=== PATIENT | female | born 1980 | race Two or more races ===

== ENCOUNTER 2016-11-26 21:06 | Emergency (ER) | payer OTHER ==
[~2016-11-26] VITALS: Ht 165.1 cm; Wt 139.7 kg
--- NOTE | ~2016-11-26 | US98 ---
[facility]. [facility] A Service of [facility] RADIOLOGY TEXT RESULTS PATIENT: JOSS OSORIO LOCATION: [facility] : 84 UNIT #: [id number] AGE: [address]: Yasmine Mcdaniel MD SEX: F ORDER DR: [id number] [address] [address] [id number] E MR#: [id number] Acc #: [id number] NAME: JOSS OSORIO : 1980 SEX: F STUDY DATE/TIME: 11/26/2016 22:01 UNIT: SED ROOM: STUDY DESCRIPTION: US Pelvic Non-OB Complete Attending Physician: Yasmine Mcdaniel M.D. Ordering Physician: Yasmine Mcdaniel M.D. Primary Care Physician: No Primary Care Physician MEDICAL IMAGING REPORT This report is preliminary unless electronic signature is present. EXAM Ultrasound pelvis, 11/26/2016. HISTORY 36-year-old female in the ED complaining of 1-month history of left lower quadrant pain. Past history of right oophorectomy surgery several years ago. TECHNIQUE Ultrasound examination of the pelvis was performed transabdominally and endovaginally. The images are very limited due to an empty urinary bladder as well as ultrasound attenuation related to patient body habitus. FINDINGS Retroverted uterus is normal in size and appearance. No visible uterine mass or endometrial fluid. Premenopausal endometrium is normal in appearance. Right ovary is surgically absent by history. Left ovary is normal in size. There is a single rounded echogenic structure within the left ovary measuring up to 1.7 cm. This most likely represents a hemorrhagic corpus luteum, but a small fat-containing nodular lesion such as a dermoid tumor could have a similar appearance. Recommend routine followup ultrasound examination in 6 months. Doppler evaluation documents left ovary blood flow. There is no free pelvic fluid. IMPRESSION 1. Technically limited study as noted above. 2. Retroverted uterus is normal in size and appearance. 3. Right ovary is surgically absent. [facility] A Service of [facility] RADIOLOGY TEXT RESULTS PATIENT: JOSS OSORIO LOCATION: SED : 84 UNIT #: [id number] AGE: [address]: Yasmine Mcdaniel MD SEX: F ORDER DR: 4. Left ovary is normal in size. Doppler evaluation documents left ovary blood flow. No significant free pelvic fluid. 5. Solitary echogenic focus within the substance of the left ovary measuring up to 1.6 cm. This may represent a physiologic hemorrhagic corpus luteum. A small fat-containing dermoid tumor could occasionally have this appearance. A routine follow up pelvic ultrasound examination in 6 months is recommended. Dictated by... Ike Oliva M.D. THIS IS AN ELECTRONICALLY VERIFIED REPORT Ike Oliva M.D. at 11/27/2016 4:46 PM KAISER/miguel a TD: 11/27/2016 11:10 JOB #: [id number] MEDICAL IMAGING REPORT Page 1 of 1
[2016-11-26] MEDS ORDERED: ACID REDUCER20 MG PO (21:16)
[2016-11-26 22:04] LABS: URINE SOURCE CLEAN CATCH
[2016-11-26 22:06] LABS: URINE APPEARANCE CLEAR; URINE BILIRUBIN NEG (NEG); URINE BLOOD NEG (NEG); URINE COLOR YELLOW; URINE GLUCOSE NEG (NORM); URINE KETONE NEG (NEG); URINE LEUKOCYTE ESTERASE NEG (NEG); URINE NITRATE NEG (NEG); URINE PH 7.5 (5-8); URINE PROTEIN NEG (NEG); URINE SPECIFIC GRAVITY 1.015 (1.003-1.035)
[2016-11-26 22:09] LABS: MICRO INDICATED? NO
== END 2016-11-26 23:06 | disposition home or self-care (01) ==
LOC: SED 21:06
PROVIDERS: Student in an Organized Health Care Education/Training Program
DX: N83.202 Unspecified ovarian cyst, left side (principal); Z88.0 Allergy status to penicillin
CPT/HCPCS: 76830; 76856; 81003; 84703; 99284

== ENCOUNTER 2016-12-08 12:53 | Emergency (ER) | payer OTHER ==
[~2016-12-08] VITALS: Ht 165.1 cm; Wt 140.2 kg
--- NOTE | ~2016-12-08 | CR63 ---
[facility]. [facility] A Service of [facility] & [facility] RADIOLOGY TEXT RESULTS PATIENT: JOSS OSORIO LOCATION: SED : 84 UNIT #: [id number] AGE: [address]: ROBERTO CHAN SEX: F ORDER DR: [id number] [address] [address] [id number] E MR#: [id number] Acc #: [id number] NAME: JOSS OSORIO : 1980 SEX: F STUDY DATE/TIME: 12/08/2016 14:30 UNIT: SED ROOM: STUDY DESCRIPTION: CR Chest 2 View Attending Physician: Sabrina Chu Ordering Physician: Physician Non-Staff Primary Care Physician: Primary Care Physician No MEDICAL IMAGING REPORT This report is preliminary unless electronic signature is present. EXAM Chest PA and lateral 12/08/2016 HISTORY Cough, chest pain and chest congestion. Symptoms for 3 days. FINDINGS PA and lateral examination of the chest upright shows a good expansion of the parenchyma with a normal distribution of the pulmonary vascularity. There is no indication of congestion, effusion, infiltrate, tumor, or nodular density. The pleural reflections and diaphragmatic contours are normal. The cardiac silhouette and mediastinal anatomy is within normal limits. IMPRESSION Normal chest. Dictated by... Calixto Freeman M.D. THIS IS AN ELECTRONICALLY VERIFIED REPORT Calixto Freeman M.D. at 12/09/2016 6:34 AM MARIANA/alondra TD: 12/09/2016 02:00 JOB #: [id number] MEDICAL IMAGING REPORT Page 1 of 1
[~2016-12-08 12:53] MED LIST: ACID REDUCER20 MG PO
== END 2016-12-08 15:15 | disposition home or self-care (01) ==
LOC: SED 12:53
DX: J20.9 Acute bronchitis, unspecified (principal); J06.9 Acute upper respiratory infection, unspecified; K21.9 Gastro-esophageal reflux disease without esophagitis; E28.2 Polycystic ovarian syndrome; Z90.49 Acquired absence of other specified parts of digestive tract; Z88.0 Allergy status to penicillin; F17.200 Nicotine dependence, unspecified, uncomplicated
CPT/HCPCS: 71020; 99283

== ENCOUNTER 2016-12-12 04:58 | Emergency (ER) | payer OTHER ==
[~2016-12-12] VITALS: Ht 165.1 cm; Wt 131.5 kg
--- NOTE | ~2016-12-12 | CT2 ---
[facility] A Service of [facility] RADIOLOGY TEXT RESULTS PATIENT: JOSS OSORIO LOCATION: SED : 84 UNIT #: [id number] AGE: [address]: Tomasa Garcia MD SEX: F ORDER DR: [id number] [address] [address] [id number] E MR#: [id number] Acc #: [id number] NAME: JOSS OSORIO : 1980 SEX: F STUDY DATE/TIME: 12/12/2016 6:43 UNIT: SED ROOM: STUDY DESCRIPTION: CT Abd and Pelv W Cont Attending Physician: Tomasa Garcia M.D. Ordering Physician: Tomasa Garcia M.D. Primary Care Physician: Primary Care Physician No MEDICAL IMAGING REPORT This report is preliminary unless electronic signature is present. EXAM CT abdomen and pelvis, 12/12 INDICATIONS Lower abdominal pain that started last night. TECHNIQUE Axial images were obtained through the abdomen and pelvis following IV contrast administration. Multiplanar reformats were obtained. This CT exam was performed with one or more of the following radiation dose reduction techniques: automatic exposure control, adjustment of mA and/or kV according to patient size, and iterative reconstruction. COMPARISON No comparison. FINDINGS ABDOMEN: Lung bases are clear. Gallbladder is surgically absent. No biliary obstruction. There is diffuse hepatic steatosis. Solid organs are otherwise normal. The unopacified GI tract is normal. No free fluid. PELVIS: The appendix is normal. The remainder of the unopacified GI tract is normal as well. There is a ventral wall hernia to the left of midline. It is near the level of the umbilicus. The defect in the fascia measures about 3.1 x 3.8 cm. The hernia contains abdominal fat. There is a left ovarian dermoid. It measures at least 3.7 x 4.6 x 2.7 cm. 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 Nabothian cysts are suspected in the cervix. IMPRESSION 1. The unopacified GI tract, including the appendix, is normal. 2. There is a fat-containing ventral wall hernia in the pelvis to the STS. [facility] A Service of [facility] & [facility] RADIOLOGY TEXT RESULTS PATIENT: JOSS OSORIO LOCATION: SED : 84 UNIT #: [id number] AGE: [address]: Tomasa Garcia MD SEX: F ORDER DR: left of midline. 3. Hepatic steatosis. 4. Cholecystectomy. 5. Left ovarian dermoid. 6. Heterogeneous endometrium. 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 Nabothian cysts are also suspected in the cervix. Dictated by... Bryant Bhatia Jr., M.D. THIS IS AN ELECTRONICALLY VERIFIED REPORT Bryant Bhatia Jr., M.D. at 12/12/2016 3:37 PM Carl TD: 12/12/2016 13:07 JOB #: [id number] MEDICAL IMAGING REPORT Page 1 of 1
[2016-12-12 06:02] LABS: URINE SOURCE CLEAN CATCH
[2016-12-12 06:02] LABS: BASOPHIL# 0.1 X10e3 (0-0.3); BASOPHIL% 1.2 % (0-2.5); EOSINOPHIL# 0.2 X10e3 (0-0.7); EOSINOPHIL% 2.1 % (0.0-7.0); LYMPHOCYTE# 5.4 X10e3 (1.0-3.5); LYMPHOCYTE% 48.9 % (17.0-45.0); MEAN CORPUSCULAR HEMOGLOBIN 27.7 PG (28-34); MEAN CORPUSCULAR HGB CONC 33.3 g/dL (30-36); MEAN PLATELET VOLUME 7.4 FL (6.5-11.5); MONOCYTE# 0.5 X10e3 (0-1.0); MONOCYTE% 4.5 % (3.0-12.0); NEUTROPHIL# 4.8 X10e3 (1.5-7.1); NEUTROPHIL% 43.3 % (40-75); PLATELET COUNT 278 X10e3 (140-420); RED BLOOD COUNT 5.07 X10e (3.90-5.30); RED CELL DISTRIBUTION WIDTH 15.5 % (11.0-15.5)
[2016-12-12 06:04] LABS: DIFF IND NO
[2016-12-12 06:05] LABS: MICRO INDICATED? YES; URINE APPEARANCE CLEAR; URINE BILIRUBIN NEG (NEG); URINE BLOOD 3+ (NEG); URINE COLOR YELLOW; URINE GLUCOSE NEG (NORM); URINE KETONE NEG (NEG); URINE LEUKOCYTE ESTERASE NEG (NEG); URINE NITRATE NEG (NEG); URINE PH 5.5 (5-8); URINE PROTEIN NEG (NEG); URINE SPECIFIC GRAVITY >=1.030 (1.003-1.035); URINE UROBILINOGEN 0.2 MG/DL (NORM)
[2016-12-12 06:09] LABS: CULTURE INDICATED? NO; URINE BACTERIA NEG (NEG); URINE RBC 25-50 /[HPF] (0-2); URINE WBC 0-2 /[HPF] (0-5)
[2016-12-12 06:10] LABS: URINE MUCUS PRESENT; URINE SQUAMOUS EPITHELIAL CELL OCCAS /[HPF]
[2016-12-12 06:20] LABS: ALBUMIN SERUM 4.1 g/dL (3.5-5.0); BILIRUBIN, DIRECT 0.1 mg/dL (0.0-0.2); BILIRUBIN,INDIRECT 0.5 mg/dL (0.0-0.9); BILIRUBIN,TOTAL 0.6 mg/dL (0.2-2.0); BUN/CREATININE RATIO 28.57; CALCIUM SERUM 8.6 mg/dL (8.4-10.2); CREATININE SERUM 0.7 mg/dL (0.6-1.4); POTASSIUM 3.7 mmol/L (3.5-5.1); PROTEIN TOTAL SERUM 7.3 g/dL (6.0-8.3)
== END 2016-12-12 07:55 | disposition home or self-care (01) ==
LOC: SED 04:58
PROVIDERS: Emergency Medicine
DX: N83.202 Unspecified ovarian cyst, left side (principal); K43.9 Ventral hernia without obstruction or gangrene; Z90.49 Acquired absence of other specified parts of digestive tract; Z88.0 Allergy status to penicillin
CPT/HCPCS: 36415; 74177; 80048; 80076; 81003; 83690; 84703; 85025; 96374; 96375; 99284; J1885; J2270; J2405; Q9967